=== PATIENT | female | born 1955 | race Caucasian/White ===

== ENCOUNTER 2021-01-09 15:58 | Inpatient (IN) ==
[2021-01-09] MEDS ORDERED: Remdesivir 100 mg Vial 200 MG in NS 0.9% 250 ml 210 ML IV ONE (17:28)
[2021-01-09] MEDS ORDERED: Albuterol HFA INHALER 8 gm MDI INH PRN (17:44)
[2021-01-09] MEDS: Enoxaparin 40 MG/0.4 ML SYR SUBCUT SCH (23:00)
[2021-01-10] MEDS: cefTRIAXone 1 gm/50 mL NS BAG 1 GM/50 ML BAG IVPB SCH (17:35)
[2021-01-10] MEDS: Remdesivir 100 mg Vial 100 MG in NS 0.9% 250 ml 230 ML IV SCH (19:10)
[2021-01-10] MEDS: Enoxaparin 40 MG/0.4 ML SYR SUBCUT SCH (19:11)
[2021-01-11 06:57] LABS: Mean Platelet Volume 7.7 fL (7.4-10.4); Platelet Count 212 10^3/uL (150-450)
[2021-01-11 07:09] LABS: eGFR CKD-EPI 65.7 (>60)
[2021-01-11] MEDS: Ondansetron ODT 4 mg TAB 4 MG TAB SL PRN (09:34)
[2021-01-11] MEDS: cefTRIAXone 1 gm/50 mL NS BAG 1 GM/50 ML BAG IVPB SCH (20:49)
[2021-01-11] MEDS: Enoxaparin 40 MG/0.4 ML SYR SUBCUT SCH (20:50)
[2021-01-11] MEDS: Remdesivir 100 mg Vial 100 MG in NS 0.9% 250 ml 230 ML IV SCH (22:02)
[2021-01-12] MEDS: Ondansetron ODT 4 mg TAB 4 MG TAB SL PRN (09:54)
[2021-01-12 11:18] VITALS: BP 116/61
== END 2021-01-12 14:45 | disposition home or self-care (01) | DRG 177 ==
LOC: ED 15:58 → SUATTDRO 17:41 → EDHOLD 17:41 → MED 20:27
PROVIDERS: ADMIT Internal Medicine; ATTEND Hospitalist